=== PATIENT | female | born 2000 | race Caucasian/White ===

== ENCOUNTER 2022-03-04 01:37 | Emergency (ER) | payer BC ==
[2022-03-04] MEDS ORDERED: TORAdol 30 mg Injection IM ONE (02:00)
[2022-03-04 02:06] VITALS: BP 132/79; PULSE 83
[2022-03-04 02:07] VITALS: O2SAT 96
--- NOTE | 2022-03-04 02:07 | ERPHSYRPT ---
- History of Present Illness Time Seen by Provider: 03/04/22 02:00 Source: patient Exam Limitations: no limitations Physician History: 21 years old presented in the ER with chief complaint of left earache since 9 PM. Moderate intensity sharp throbbing and it feels as if she has a pressure behind the eardrum. No ear discharge. Does have some URI congestion symptoms as well. No history of otitis media in the past. No fever or chills reported. Timing/Duration: abrupt onset, hours (5) Severity: moderate ENT Location: ear (L) Prearrival Treatment: over the counter meds Associated Symptoms: ear pain (L), nasal congestion/drainage, No fever, No ear drainage Allergies/Adverse Reactions: No Known Drug Allergies Allergy (Verified 03/04/22 01:54) - Review of Systems Constitutional: No Symptoms Eyes: No Symptoms Ears, Nose, & Throat: Ear Pain, Nose Congestion, Throat Pain Respiratory: No Symptoms Cardiac: No Symptoms Abdominal/Gastrointestinal: No Symptoms Genitourinary Symptoms: No Symptoms Musculoskeletal: No Symptoms Neurological: No Symptoms Endocrine: No Symptoms Hematologic/Lymphatic: No Symptoms - Physical Exam General Appearance: no apparent distress Eye Exam: bilateral eye: normal inspection, PERRL, EOMI Ear Exam: right ear: canal normal, left ear: erythema, TM dull, bilateral ear: auricle normal Nasal Exam: normal inspection Throat Exam: normal, pharynx normal Neck Exam: normal inspection, non-tender, supple, full range of motion Cardiovascular/Respiratory Exam: normal breath sounds, regular rate/rhythm Skin Exam: normal color SpO2 Interpretation: normal SpO2: 96 O2 Delivery: Room Air - Progress Progress: improved, pain not gone completely Progress Note: 03/04/22 she is given Toradol for symptomatic relief. Started on Omnicef. Outpatient follow-up recommended. Discussed signs symptoms of worsening needing return to ER which she seems understanding. Stable for discharge. Counseled pt/family regarding: diagnosis, need for follow-up - Departure Departure Disposition: Home Clinical Impression: Otitis media Condition: Stable Critical Care Time: No Referrals: JEANNINE APPLE [Primary Care Provider] - Follow Up with PCP/3 days Instructions: Ear Infections (Otitis Media) in Adults (DC) Additional Instructions: Take Tylenol/ibuprofen alternate every 4 hour for pain control as needed. Follow-up with primary care for reevaluation. Return to ER for any worsening. Prescriptions: Cefdinir 300 mg PO BID 10 Days #20 cap
[2022-03-04] MEDS ORDERED: TORAdol 30 mg Injection ONE (02:10)
== END 2022-03-04 02:24 | disposition home or self-care (01) ==
LOC: ED 01:37
DX: H66.92 Otitis media, unspecified, left ear (principal); H92.02 Otalgia, left ear; R09.81 Nasal congestion
CPT/HCPCS: 96372; 99282; J1885